=== PATIENT | male | born 1970 | race Caucasian/White ===

== ENCOUNTER → 2017-11-17 | Outpatient (CLI) | payer BC | LOC: COL.RAD 08:06 | DX: K82.8 Other specified diseases of gallbladder (principal) | CPT/HCPCS: A9537 ==

== ENCOUNTER 2020-11-18 13:13 | Emergency (ER) | payer OTHER ==
[~2020-11-18] VITALS: Ht 177.8 cm; Wt 113.6 kg
[2020-11-18 13:21] VITALS: TEMP 98.4
[2020-11-18 14:04] LABS: BASO # 0.1 (0.0-0.2); BASO % 0.7 % (0.0-2.0); EOS # 0.1 (0.0-0.7); EOS % 1.2 % (0-4.0); GRAN # 5.2 (1.4-6.5); GRAN % 64.3 % (42.2-75.2); HEMATOCRIT 43.6 % (42.0-52.0); HEMOGLOBIN 14.5 g/dl (13.5-18.0); LYMPH # 2.1 (1.2-3.4); LYMPH % 26.3 % (20.0-51.0); MEAN CELL VOLUME 86 fl (80.0-100.0); MEAN CORPUSCULAR HEMOGLOBIN 29 pg (27.0-31.0); MEAN CORPUSCULAR HGB CONC 33 g/dl (33.0-37.0); MEAN PLATELET VOLUME 9.1 fl (7.4-10.4); MONO # 0.6 (0.1-0.6); MONO % 6.9 % (1.7-9.3); PLATELET COUNT 300 K/mm3 (130-400); RED BLOOD COUNT 5.08 M/mm3 (4.20-5.60); REDCELL DISTRIBUTION WIDTH-CV 13.7 % (11.5-14.5)
[2020-11-18] MEDS ORDERED: PRILOSEC10 MG PO (14:07)
[2020-11-18] MEDS ORDERED: LIPITOR 10MG10 MG PO (14:10)
[2020-11-18 14:22] LABS: TROPONIN-I < 0.012 ng/mL (0.000-0.035)
[2020-11-18] MEDS ORDERED: ANTIVERT 25MG25 MG PO (15:23)
[2020-11-18 15:27] VITALS: BP 120/84; PULSE 70
== END 2020-11-18 15:32 | disposition home or self-care (01) ==
LOC: COL.ER 13:13
PROVIDERS: Emergency Medicine
DX: R51.9 Headache, unspecified (principal); R42 Dizziness and giddiness; R07.89 Other chest pain; I10 Essential (primary) hypertension; E78.5 Hyperlipidemia, unspecified; K21.9 Gastro-esophageal reflux disease without esophagitis; Z87.891 Personal history of nicotine dependence; Z79.899 Other long term (current) drug therapy
CPT/HCPCS: J0780

== ENCOUNTER 2021-04-01 12:07 | Emergency (ER) | payer OTHER ==
[~2021-04-01] VITALS: Ht 177.8 cm; Wt 109.1 kg
[~2021-04-01 12:07] MED LIST: ANTIVERT 25MG25 MG PO; LIPITOR 10MG10 MG PO; PRILOSEC10 MG PO
[2021-04-01 12:30] VITALS: TEMP 100.8
[2021-04-01] MEDS ORDERED: COZAAR 50MG50 MG/TAB PO (13:31)
[2021-04-01] MEDS ORDERED: LIPITOR 40MG TA40 MG PO (13:31)
[2021-04-01] MEDS ORDERED: HCTZ 25MG TAB25 MG PO (13:32)
[2021-04-01] MEDS ORDERED: CELEXA40 MG PO (13:32)
[2021-04-01] MEDS ORDERED: PRILOSEC 20MG20 MG PO (13:32)
[2021-04-01 14:16] LABS: BASO % 0.2 % (0.0-2.0); GRAN % 81.3 % (42.2-75.2); HEMATOCRIT 40.9 % (42.0-52.0); LYMPH # 0.9 K/mm3 (1.2-3.4); LYMPH % 14.8 % (20.0-51.0); MEAN CELL VOLUME 84 fl (80.0-100.0); MEAN CORPUSCULAR HEMOGLOBIN 29 pg (27.0-31.0); MEAN CORPUSCULAR HGB CONC 34 g/dl (33.0-37.0); MEAN PLATELET VOLUME 9.1 fl (7.4-10.4); MONO # 0.2 K/mm3 (0.1-0.6); PLATELET COUNT 197 K/mm3 (130-400); REDCELL DISTRIBUTION WIDTH-CV 13.9 % (11.5-14.5)
[2021-04-01 14:28] LABS: C-REACTIVE PROTEIN 7.92 mg/dL (0.00-0.50)
[2021-04-01 14:53] LABS: ALBUMIN 3.6 gm/dL (3.5-5.0); BILIRUBIN,TOTAL 0.4 mg/dL (0.2-1.2); CALCIUM 8.5 mg/dL (8.4-10.2); CREATININE, serum 0.83 mg/dL (0.72-1.25); TOTAL PROTEIN 7.4 gm/dL (6.2-8.1)
[2021-04-01 18:43] VITALS: BP 149/85; PULSE 90
== END 2021-04-01 18:43 | disposition home or self-care (01) ==
LOC: COL.ER 12:07
PROVIDERS: Nurse Practitioner
DX: U07.1 COVID-19 (principal); I10 Essential (primary) hypertension; E78.5 Hyperlipidemia, unspecified; Z87.891 Personal history of nicotine dependence; Z79.899 Other long term (current) drug therapy
CPT/HCPCS: J7030; M0243; Q0244; Q9967

== ENCOUNTER → 2023-02-03 | Outpatient (CLI) | payer OTHER ==
[~2023-02-03] MED LIST changes: +CELEXA40 MG PO; +COZAAR 50MG50 MG/TAB PO; +HCTZ 25MG TAB25 MG PO; +LIPITOR 40MG TA40 MG PO; +PRILOSEC 20MG20 MG PO
== END ==
LOC: COL.RAD 14:14
DX: S83.91XA Sprain of unspecified site of right knee, initial encounter (principal)